=== PATIENT | female | born 1975 | race Caucasian/White ===

== ENCOUNTER 2018-08-18 05:05 | Emergency (ER) | payer BC, OTHER ==
[~2018-08-18] VITALS: Ht 160 cm; Wt 80.7 kg
[2018-08-18] MEDS ORDERED: DIPHENHYDRAMINE 50 MG/ML, 1ML ONE (05:29)
[2018-08-18] MEDS ORDERED: METOCLOPRAMIDE 5 MG/ML, 2ML ONE (05:29)
[2018-08-18] MEDS ORDERED: DIPHENHYDRAMINE 50 MG/ML, 1ML IVPush ONE (05:30)
[2018-08-18] MEDS ORDERED: METOCLOPRAMIDE 5 MG/ML, 2ML IVPush ONE (05:30)
[2018-08-18] MEDS ORDERED: KETOROLAC 30 MG/1 ML IVPush ONE ×2 (05:30→07:00)
[2018-08-18] MEDS ORDERED: SODIUM CHLORIDE FLUSH 10ML SYR IVF ONE (05:30)
[2018-08-18 05:47] LABS: BASOPHILS # (AUTO) 0.01 x10^3/uL (0-0.1); BASOPHILS % (AUTO) 0 % (0-1); EOSINOPHILS # (AUTO) 0.16 x10^3/uL (0-0.4); EOSINOPHILS % (AUTO) 3 % (1-7); LYMPHOCYTES # (AUTO) 1.36 x10^3/uL (1-3.4); LYMPHOCYTES % (AUTO) 22 % (22-44); MD NO; MEAN CORPUSCULAR HEMOGLOBIN 29.6 pg (27.0-34.8); MEAN CORPUSCULAR HGB CONC 33.1 g/dL (32.4-35.8); MEAN CORPUSCULAR VOLUME 89.2 fL (80-100); MONOCYTES # (AUTO) 0.27 x10^3/uL (0.2-0.8); MONOCYTES % (AUTO) 4 % (2-9); NEUTROPHILS # (AUTO) 4.36 x10^3/uL (1.8-6.8); NEUTROPHILS % (AUTO) 71 % (42-75); PLATELET COUNT 297 x10^3/uL (130-400); RED BLOOD COUNT 5.03 x10^6/uL (3.82-5.3); RED CELL DISTRIBUTION WIDTH 12.9 % (9.6-15.2)
[2018-08-18 05:55] LABS: PROTHROMBIN TIME 10.6 Seconds (9.6-11.5)
[2018-08-18 05:58] LABS: ALBUMIN 3.9 g/dL (3.4-5.0); ANION GAP 7 mmol/L (5-15); CHLORIDE 108 mmol/L (98-107); CREATININE 0.92 mg/dL (0.55-1.02)
[2018-08-18] MEDS ORDERED: COLCHICINE 0.6 MG TABLET ONE (06:03)
[2018-08-18] MEDS ORDERED: KETOROLAC 30 MG/1 ML ONE (07:03)
[2018-08-18 08:09] VITALS: BP 107/64
== END 2018-08-18 08:12 | disposition home or self-care (01) ==
LOC: ED 07:05
DX: R51 Headache (principal); Z87.891 Personal history of nicotine dependence
CPT/HCPCS: 36415; 70450; 80048; 82040; 82375; 84703; 85025; 85610; 85730; 96374; 96375; 99284; J1200; J1885; J2765